=== PATIENT | female | born 1950 | race Caucasian/White ===

== ENCOUNTER 2020-11-23 20:38 | Inpatient (IN) | payer OTHER ==
[~2020-11-23] VITALS: Ht 170.2 cm; Wt 74.7 kg
--- NOTE | ~2020-11-23 | EMS ---
[address] [address] EMS Patient Care Report Name: NILESH AGUIRRE Room #: PRE MAlbina#: [id number] Admission: Attend Phys: Discharge: Date of : 48 Report #: [id number] THIS REPORT FOR: //name// Report Transmitted: 11/23/2020 21:19 EMS Care Summary [facility] MED-ACT Incident [id number] @ 11/23/2020 20:05 Incident Location [address] [place] [address] Patient NILESH AGUIRRE Female, 70 Years 1950 Patient Address [address] [place] [address] Patient History Chronic Obstructive Pulmonary Disease (COPD),Chronic Respiratory Failure, Patient Allergies No known allergies, Patient Medications Unknown, Chief Complaint no complaint by pt Disposition Transported No Lights/[place] Reason Breathing Problem Transported To [facility] Narrative Arrived to find pt lying in bed alert and oriented. Staff stated the pt is being treated for pneumonia and that her SPO2 saturation has been in the 60's [address] [address] EMS Patient Care Report Name: NILESH AGUIRRE Room #: PRE ER M.R.#: [id number] Admission: Attend Phys: Discharge: Date of : 48 Report #: [id number] for the past several days. Upon EMS arrival pt's SPO2 sat was 94 with a simple mask over her trach. Staff was unable to explain if they had treated the pt to increase the pt's oxygen sateration. Pt denied any complaint and was in no visible distress. Pt was lift to the cot and placed in the position of comfort and rested without change en route to [facility] ER. Upon arrival pt was taken to [facility] and care transferred to staffing account manager with report. Initial Vitals @20:27P: 85,R: 18,BP: 129/67,Pain: 0/10,GCS: 15,Temp: 97.6F,SpO2: 93,Revised Trauma: 12, Impression Pneumonia Procedures @PTAOxygen FlowRate: 12 Device: Trach Mask Response: UnchangedSucceeded Timeline DRILLING INSPECTOR,Oxygen FlowRate: 12 Device: Trach Mask Response: UnchangedSucceeded, 20:04,Call Received 20:04,Psap Call 20:05,Dispatched 20:06,En Route 20:12,On Scene 20:15,At Patient 20:24,Depart Scene 20:27,BP: 129/67 M,PULSE: 85,RR: 18 R,SPO2: 93 Ox,ETCO2: ,BG: ,PAIN: 0,GCS: 15, 20:35,At Destination 20:54,Call Closed Disclaimer v1.1 Copyright 2020 [employer] This EMS Care Summary contains data elements from the applicable legal record (which may be displayed differently). It is designed to provide pertinent information for the following purposes: continuity of care, clinical quality, and state data reporting. The complete legal record is available to ED staff and administrators of the receiving hospital in [facility]'s Patient Tracker. All data is provided "as is."
[2020-11-23 20:43] VITALS: BP 136/59
[2020-11-23 22:12] LABS: ABSOLUTE NEUTROPHILS 4.3 thou/uL (1.4-8.2); BASOPHILS 0.6 % (0.0-2.0); EOSINOPHILS 1.2 % (0.0-3.0); HEMATOCRIT 30.5 % (37.0-47.0); HEMOGLOBIN 9.2 gm/dL (12.0-15.0); LYMPHOCYTES 9.5 % (24.0-44.0); MCHC 30.2 g/dL (28.0-37.0); MONOCYTES 11.2 % (1.0-8.0); PLATELET COUNT 221 thou/uL (150-400); POLYS 77.5 % (36.0-66.0); RBC 3.18 mil/uL (4.20-5.00); RDW 15.2 % (10.5-14.5); WBC 5.6 thou/uL (4.0-11.0)
[2020-11-23 22:36] LABS: BUN 31 mg/dL (7-18); CALCIUM 9.8 mg/dL (8.5-10.1); CHLORIDE 98 mmol/L (98-107); CREATININE 0.6 mg/dL (0.6-1.0); GLUCOSE 123 mg/dL (74-106); POTASSIUM 4.3 mmol/L (3.5-5.1); SODIUM 144 mmol/L (136-145)
[2020-11-23 22:39] LABS: CO2 > 45 mmol/L (21-32)
[2020-11-24 00:59] LABS: BE(vivo) 21.7 mmol/L (-2 to +3); HCO3 51.1 mmol/L (22.0-26.0); sO2 95.1 % (92.0-98.0)
[2020-11-24 01:00] LABS: pH 7.318 (7.360-7.450)
[2020-11-24] MEDS ORDERED: CLONAZEPAM 0.50.5 M1 PER TUBE (02:30)
[2020-11-24] MEDS ORDERED: PROAIR HFA8.5 GM INH (02:30)
[2020-11-24] MEDS ORDERED: NORVASC10 MG PER TUBE (02:32)
[2020-11-24] MEDS ORDERED: LANSOPRAZOLE30 M2 PER TUBE (02:33)
[2020-11-24] MEDS ORDERED: ELIQUIS5 MG PER TUBE (02:34)
[2020-11-24] MEDS ORDERED: CLARITIN10 MG PER TUBE (02:34)
[2020-11-24] MEDS ORDERED: LOPERAMIDE2 MG PO (02:35)
[2020-11-24] MEDS ORDERED: MELATONIN5 MG PER TUBE (02:36)
[2020-11-24] MEDS ORDERED: ZOLOFT50 M1 PER TUBE (02:36)
[2020-11-24] MEDS ORDERED: HYDRALAZINE 5050 MG PO (02:36)
[2020-11-24] MEDS ORDERED: REMERON 30 MG T30 M1 PO (02:37)
[2020-11-24] MEDS ORDERED: VALPROIC A250 MG/51 PER TUBE (02:38)
[2020-11-24] MEDS ORDERED: ACETAMINOP160 MG/51 PER TUBE (02:39)
[2020-11-24] MEDS ORDERED: HYDROXYZINE PAM50 MG PO (02:40)
[2020-11-24] MEDS ORDERED: VALPROIC A250 MG/51 PO (02:42)
[2020-11-24 06:41] LABS: BE(vivo) 21.7 mmol/L (-2 to +3); HCO3 50.8 mmol/L (22.0-26.0); pH 7.366 (7.360-7.450); sO2 83.5 % (92.0-98.0)
[2020-11-24 06:42] LABS: PCO2 90.7 mmHg (35.0-45.0); PO2 52.8 mmHg (80.0-100.0)
--- NOTE | 2020-11-24 15:05 | NUR ---
SPOKE TO PATIENTS SON, RAVIN TuckerRadha UPDATED HIM ON PATIENTS CONDITION.
[2020-11-24 15:40] VITALS: BP 118/58
--- NOTE | 2020-11-24 17:02 | NUR ---
PT ORIENTED TO ROOM AND UNIT, BED LOW AND LOCKED, INSURANCE CLAIMS PROCESSOR RAILS UPX3, CALL LIGHT IN REACH, TELE APPLIED. PT ON BIPPAP HOWEVER DRAFTER DIRECTIONAL SURVEY DOES NOT KNOW SETTINGS OR TRACH SIZE. PEG TUBE AND COLOSTOMY IN PLACE. WILL CONTINUE TO ASSESS.
--- NOTE | 2020-11-24 17:39 | NUR ---
SHORTLY AFTER PT ADMITTED TO UNIT SHE BACAME LETHARGIC AND APNIC. PERFORMED STRERNAL CHEST RUB TO AROUSE PT WITH NO SUCCESS. FOUND TRACH CUNNULA TO BE PULLED OUT OF TRACH SITE. IMMEDIATELY REPLACE CANNULA INTO TRACH SITE AND CALLED RT. PT'S OXYGEN SATURATION IMPROVED AND PT BEGAN TAKING SPOTANEUOS BREATHS. PT MOVED TO ROOM 16 NEXT TO NURSING STATION. CONTACT PT'S SON TO INFORM AND CONTACT DR. PORRAS AND OBTAINED PRN MEDICATION FOR ANXIETY.
[2020-11-24 19:51] VITALS: BP 156/77
[2020-11-24 23:47] VITALS: BP 182/76
--- NOTE | 2020-11-25 03:40 | NUR ---
ASSUMED CARE OF PT AT 1900, PT ASSESSMENT COMPLETED NOTED. PT ALERT WITH TRACH IN PLACE ON BIPAP. PEG TUBE PATENT, PT DENIES PAIN OR SOA MORE THAN NORMAL. WILL CONTINUE TO WORK TOWARDS POC.
[2020-11-25 03:59] LABS: HEMATOCRIT 26.7 % (37.0-47.0); HEMOGLOBIN 8.7 gm/dL (12.0-15.0); MCH 30.2 pg (26.0-34.0); MCHC 32.5 g/dL (28.0-37.0); MCV 92.9 fL (80.0-100.0); RBC 2.87 mil/uL (4.20-5.00); RDW 14.9 % (10.5-14.5); WBC 3.6 thou/uL (4.0-11.0)
[2020-11-25 04:03] LABS: ANION GAP < 0 mmol/L (7-16); BUN 18 mg/dL (7-18); CALCIUM 9.4 mg/dL (8.5-10.1); CHLORIDE 102 mmol/L (98-107); CO2 43 mmol/L (21-32); CREATININE 0.6 mg/dL (0.6-1.0); GLUCOSE 119 mg/dL (74-106); MAGNESIUM 1.5 mg/dL (1.8-2.4); POTASSIUM 3.9 mmol/L (3.5-5.1); SODIUM 141 mmol/L (136-145)
[2020-11-25 04:23] VITALS: BP 188/81
[2020-11-25 08:00] VITALS: BP 148/66
--- NOTE | 2020-11-25 11:40 | NUR ---
CONTACTED BY DR. LAINE HARRELL AND INFORMED THAT HE WILL REFUSE TO CONSULT ON PATIENT. CONTACT DR. PORRAS TO INFORM ENT REFUSING CONSULT. WILL CONTINUE TO ASSESS.
[2020-11-25 12:00] VITALS: BP 150/69
--- NOTE | 2020-11-25 12:19 | NUR ---
DR. PORRAS CONTACT DR. HARRELL AND HE WILL CONSULT ON PT TOMORROW IN THE AM.
[2020-11-25 19:56] VITALS: BP 160/70
[2020-11-26 04:22] VITALS: BP 124/60
--- NOTE | 2020-11-26 05:07 | NUR ---
RECEIVED PATIENT ON BED,ALERT AND ORIENTED X4.WITH TRACHEOSTOMY CONNCETED TO BIPAP AT 40% INITIALLY THEN INCREASED BY RT ON DUTY TO 45%, PER PATIENT'S OXYGEN SATURATION.WITH PEG TUBE ON CONTINOUS FEEDING AND FLUSH SCHEDULED.WITH COLOSTOMY INTACT.NO COMPLAINTS OF PAIN.ALL NEEDS ATTENDED.WILL CONTINOUSLY MONITOR.
--- NOTE | 2020-11-26 07:35 | EKG ---
[place] [address] [facility] [place] [address] ELECTROCARDIOGRAM REPORT Name: NILESH AGUIRRE Room #: 216-P ADM IN M.R.#: [id number] Admission: 11/24/20 Attend Phys: Alexander Woo MD Discharge: Date of : 48 Report #: [id number] [facility] ED Test Date: 2020-11-23 Test Time: 21:10:01 Pat Name: NILESH AGUIRRE Department: Room: 216 Gender: F Exercise Planner: leslie day : 1950 Requested By: Ang Chaparro Order Number: [id number] MD: Danny Davis Measurements Intervals [place] Rate: 82 P: 15 OH: 127 QRS: -48 QRSD: 104 T: 4 QT: 382 QTc: 446 Interpretive Statements Sinus rhythm Abnormal R-wave progression, late transition Minimal ST elevation, lateral leads No previous ECG available for comparison Electronically Signed On 11-26-2020 7:34:53 CDT by Danny Davis [email or web address] <ELECTRONICALLY SIGNED> By: Danny Davis MD, [facility] 11/26/2034 09 09 Danny Davis MD, FACC /EPI
[2020-11-26 08:00] VITALS: BP 153/77
--- NOTE | 2020-11-26 14:00 | NUR ---
Nutrition: Consider increasing tube feeding rate to 45 mL/hr according to estimated needs.
--- NOTE | 2020-11-26 14:15 | NUR ---
Case opened to follow for dc planning. Pt admitted from [facility] where she had been rehabing with the goal of returning home with her spouse. The pt has had a complex medical course over the past few months. She is from [facility] where she lived with her spouse. She has a colostomy, peg, and trach and is currently on bipap. She was transfered to [facility] from [facility] in [facility] for continued vent weaning. She has been off the vent/bipap and getting 35% o2 per trach shield for the past 3-4 weeks. Updates and referral faxed to intake at [facility]. Blacking Machine Operator spoke with the pt's son and he requested a call from Pulmonary. Messages sent to Dr. Castro. Pt is now back on bipap and being treated for pneumonia. Therapy evals requested. Pt's son Vazquez is the primary contact and lives locally. Pt's spouse Manjeet is in [facility] and available as needed. The family's goal was rehab the pt and eventually try to get her home. Dc plan is to return to [facility] either LTAC or SNF pending her care needs and benefits. Pt's son notes she has used most of her lifetime reserve medicare days and some snf days. She does not have a secondary insurance and they have not applied for medicaid. Will follow.
[2020-11-26 16:00] VITALS: BP 146/76
--- NOTE | 2020-11-26 16:50 | NUR ---
CONTINUE PLAN OF CARE AND PT TOLERATING TUBE FEEDINGS WELL. PT DENIES PAIN AND REMAINS ON THE BIPAP. UNABLE TO FUND COLOSTOMY CART TO CHANGE COLOSTOMY. [employer]EN[employer]AL [employer] REPORTS THAT IT IS ON THIS UNIT HOWEVER NO ONE ABLE TO FIND CART. WILL CONTINUE TO ASSESS.
--- NOTE | 2020-11-26 18:45 | NUR ---
COLOSTOMY BAG CHANGED RIGHT LOWER QUADRANT.
[2020-11-26 20:15] VITALS: BP 144/76
[2020-11-27 04:20] VITALS: BP 130/60
[2020-11-27 05:25] LABS: ABSOLUTE NEUTROPHILS 2.6 thou/uL (1.4-8.2); EOSINOPHILS 0.8 % (0.0-3.0); HEMATOCRIT 26.5 % (37.0-47.0); HEMOGLOBIN 8.6 gm/dL (12.0-15.0); LYMPHOCYTES 13.7 % (24.0-44.0); MCH 30.3 pg (26.0-34.0); MCHC 32.7 g/dL (28.0-37.0); MCV 92.8 fL (80.0-100.0); MONOCYTES 5.7 % (1.0-8.0); PLATELET COUNT 254 thou/uL (150-400); POLYS 78.8 % (36.0-66.0); RBC 2.85 mil/uL (4.20-5.00); RDW 15.1 % (10.5-14.5); WBC 3.3 thou/uL (4.0-11.0)
[2020-11-27 05:37] LABS: ALBUMIN 2.4 g/dL (3.4-5.0); CALCIUM 8.9 mg/dL (8.5-10.1); CREATININE 0.6 mg/dL (0.6-1.0); POTASSIUM 3.7 mmol/L (3.5-5.1); TOTAL BILIRUBIN 0.2 mg/dL (0.2-1.0); TOTAL PROTEIN 6.1 g/dL (6.4-8.2)
[2020-11-27 08:09] VITALS: BP 142/62
[2020-11-27 11:05] VITALS: BP 146/61
--- NOTE | 2020-11-27 14:26 | NUR ---
Spoke with Joann who reports they plan to eval for LTAC as oppose to patient returning to rehab to home program. Faxed clinical update. Sp with Macie at [facility] who reports patient has used all her medicare days. She would be in a co-pay days $680 a day. Patient not accepted to LTAC side. She reports also not a candidate to their rehab to home program. Only ltc unit at [facility] is for nonweanable vent patients. 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 Plan for Dr Joaquin to repair stricture once patient off vent for 6 weeks. Macie reports patient has been off vent for that time. Patient on BIPAP at this time.
[2020-11-27 16:49] VITALS: BP 135/60
--- NOTE | 2020-11-27 18:33 | NUR ---
PT IS AXOX3-4, PLEASANT; VSS, AFEBRILE, SR ON MONITOR. PT HAS BEEN ABLE TO COMMUNICATE WITH LIP READING THROUGHOUT THE DAY. TRACH IS #6 BOVINA. ADDITIONAL TRACH AT THE BEDSIDE. PT USING BIPAP ASSIST AT 16/6, FiO2 45%. PT IS ON TUBE FEED, JEVITY 1.5 AT 40ML/HR. GOAL RATE 40ML/HR WITH 100ML FLUSH AT Q6H. SPEECH CONSULTED; PT STARTED ON HH MECHANICAL SOFT DIET. PT TOLERATING WELL. CASE MGMT CONSULTED POC IS TO CONTINUE TO ASSESS PT O2 SAT, ABX THERAPY. AWAITING FOR D/C PLANS TO LTAC FACILITY. FALL PRECAUTIONS IN PLACE; CALL LIGHT AND NEEDS WITHIN REACH. FREQUENT ROUNDING. PT CALLS APPROPRIATELY. NO CONCERNS AT THIS TIME.
[2020-11-27 20:51] VITALS: BP 138/63
[2020-11-28 04:40] VITALS: BP 142/67
[2020-11-28 08:38] VITALS: BP 117/53
--- NOTE | 2020-11-28 10:27 | NUR ---
Assumed care of pt this AM. Pt is A&O x 3-4. Denies any chest pain. On trach w/ Bipap settings 16/6 45% FiO2. SR on the monitor. Pt reports that she didn't sleep well last night & has been sleeping most of morning so far. Ileostomy in place & patent. PEG in place, no residual, continuing tube feedings at 40mL/hr Jevity 1.5. Awaiting placement d/t medicare issues. Will continue to assess pt needs throughout day.
[2020-11-28 11:45] VITALS: BP 133/67
[2020-11-28 16:00] VITALS: BP 125/62
--- NOTE | 2020-11-28 16:51 | NUR ---
CM spoke with pt's son Vazquez regarding dc plan. [facility] declining her readmission. Pt has utilized her medicare lifetime days. No secondary in place but son willing to pay 20% copay upfront. Pt still on continuous bipap per kenny liu. Goal is to rehab and eventually return home with spouse in [facility]. He has moved into a first floor condo to be on one level. Son to call [facility] and talk with their business office. [employer] notified of request to talk with son regarding [place] medicaid application. May need to consider other SNF referrals once her respiratory status improves.
[2020-11-28 20:04] VITALS: BP 127/62
[2020-11-28 22:39] VITALS: BP 123/65
[2020-11-29 04:55] VITALS: BP 123/65
--- NOTE | 2020-11-29 05:02 | NUR ---
UPON SHIFT ASSESSMENT, PT AOX4. PT DENIES PAIN. PT REPORTS SOB WITH EXERTION AND CONVERSATION, REMAINS ON 16L O2 VIA BIPAP AND TRACH. PT REPORTS ANXIETY, REQUESTING TO RESTART HOME MEDICATIONS. ONCALL PROPELLER MECHANIC NOTIFIED, RECEIEVED ORDERS FOR PRN PO 0.5MG KLONOPIN BID. PT TOLERATING PO INTAKE OF FLUIDS AND HEART HEALTHY DIET WITHOUT ISSUE. PT WITHOUT NAUSEA OR EMESIS. PT VOIDING PER EXTERNAL CATHETER. REMAINS PATENT. PT RESTING IN BED THROUGHOUT SHIFT, FREQUENT REPOSITIONING ENCOURAGED. PT NOTED TO SHIFT SLIGHTLY ON HER OWN, REPOSITIONING ASSISTANCE PROVIDED. SENSATION INTACT, CAPILLARY REFILL LESS THAN 3SEC, PERIPHERAL PULSES PALPABLE IN ALL EXTREMITIES. PT ENCOURAGED TO NOTIFY STAFF FOR ALL NEEDS, CALL LIGHT WITHIN REACH, BED ALARM ON, BED LOCKED IN LOWEST POSITION, ROOM REMAINS NEAR NURSES STATION, FREQUENT MONITORING WILL CONTINUE.
[2020-11-29 07:35] VITALS: BP 134/61
--- NOTE | 2020-11-29 09:11 | NUR ---
OSTOMY CARE; AWAKE, ALERT, COOPERATIVE, POUCH EDGES LOOSE, NEW POUCH KELLY CUT TO FIT APPLIANCE APPLIED, STOMA PINK VIABLE, BUDDED, W/ LIQ BROWN STOOL NOTED, PERISTOMAL SKIN INTACT, ADAPT RING APPLIED UNDER WAFER, SUPPLIES PLACED AT BS RECOMMENDATIONS; CHANGE POUCH Q 3-4 DAYS AND PRN, EMTPY PRN GARAGE DOOR OPENER INSTALLER AWARE
[2020-11-29 11:20] VITALS: BP 142/61
[2020-11-29] MEDS ORDERED: PREDNISONE 20 M20 MG PO (13:54)
[2020-11-29] MEDS ORDERED: ZOSYN 3.373.375 GM/1 IV (13:54)
[2020-11-29 15:42] VITALS: BP 128/69
--- NOTE | 2020-11-29 18:21 | NUR ---
PATIENT DISCHARGE WITH EMS. TRANSFERED TO EMS BIPAP AND MONITORS. TELE REMOVED BUT IV LEFT PER FACILITY REQUEST. NO CONCERNS BY PATIENT AT TIME OF TRANSFER. PATIENT STABLE AT TRANSFER.
== END 2020-11-29 19:34 | DRG 193 ==
LOC: ER 20:38 → 2N 11-24 01:30 → EROBS 11-24 01:30 → EDBD 11-24 01:30 → 2N 11-24 16:58
PROVIDERS: Nurse Practitioner Family; Pediatrics; Student in an Organized Health Care Education/Training Program; ADMIT Internal Medicine; ATTEND Internal Medicine
PROC: 5A09557 Assistance with Respiratory Ventilation, Greater than 96 Consecutive Hours, Continuous Positive Airway Pressure (ICD-10-PCS; principal; 2020-11-24)
DX: J18.9 Pneumonia, unspecified organism (principal); J96.21 Acute and chronic respiratory failure with hypoxia; J96.22 Acute and chronic respiratory failure with hypercapnia; J44.0 Chronic obstructive pulmonary disease with (acute) lower respiratory infection; Z20.822 Contact with and (suspected) exposure to COVID-19; F31.9 Bipolar disorder, unspecified; I10 Essential (primary) hypertension; K21.9 Gastro-esophageal reflux disease without esophagitis; F41.9 Anxiety disorder, unspecified; I73.9 Peripheral vascular disease, unspecified; T17.990A Other foreign object in respiratory tract, part unspecified in causing asphyxiation, initial encounter; I25.10 Atherosclerotic heart disease of native coronary artery without angina pectoris; Z93.3 Colostomy status; Z82.49 Family history of ischemic heart disease and other diseases of the circulatory system; Z93.0 Tracheostomy status; X58.XXXA Exposure to other specified factors, initial encounter; Y93.89 Activity, other specified; Y92.89 Other specified places as the place of occurrence of the external cause; Y99.8 Other external cause status; Z79.899 Other long term (current) drug therapy
CPT/HCPCS: 10081

== ENCOUNTER 2021-02-28 06:23 | Day surgery (SDC) | payer OTHER ==
[~2021-02-28] VITALS: Ht 154.9 cm; Wt 65.9 kg
--- NOTE | ~2021-02-28 | O ---
[facility] [place] [address] OPERATIVE REPORT Name: NILESH AGUIRRE Room #: DEP [facility] M.R.#: [id number] Admission: 02/28/21 Attend Phys: Germain Joaquin MD Discharge: 03/01/21 Date of : 48 Report #: [id number] THIS REPORT FOR: cc: Cely Galeas MD, Martha M. MD Ellis,Germain Chow MD ~ DATE OF SERVICE: 02/28/2021 PREOPERATIVE DIAGNOSES: Tracheal obstruction, airway instability. POSTOPERATIVE DIAGNOSES: Tracheal obstruction, airway instability. PROCEDURES: 1. Direct laryngoscopy, diagnostic. 2. Tracheotomy revision. DESCRIPTION OF PROCEDURE: The patient was brought to the operating room and placed in normal supine position. General anesthesia was obtained. The patient had an existing trach, which is utilized for ventilation. The Bivona tracheotomy tube was removed and an armored endotracheal tube was inserted through her existing tracheotomy. The oral cavity was opened. A tooth guard was placed and a Dedo laryngoscope was used to examine the hypopharynx, larynx. Vocal cords did both move symmetrically. The immediate subglottic area was completely obstructed with scar tissue. Bronchoscope was utilized to attempt to push through the scar tissue and granulation tissue present and was not viable at this time to proceed with a competent airway as the scar tissue was complete and concentric. Because of the long-term issues related to the patient's care and previous issues related to her having difficulty with general anesthesia and her debilitation at this time, it was elected not to attempt to change her subglottic airway as she has an unsure future disposition as to where she will be followed and might be moving back to [place]. The endoscopy was then terminated. The attention was turned to the patient's neck and unstable tracheotomy site. She had granulation tissue that surrounded the tracheotomy tube. Granulation tissue was debrided around the tracheostomy. Skin was removed from the inferior and lateral aspects of the tracheal wound. Subcutaneous tissue was also removed to allow for sewing the skin to the mucosa of the trachea inferiorly and laterally. Superior aspect was a well-formed tract and was left in place. The peristomal skin was secured with silk sutures from the surgical 2 o'clock position to 10 o'clock position. The armored tube was replaced with a new Shiley type shaft tracheostomy tube. The patient was awoken from anesthesia and transferred to recovery in stable condition. She will be [address] [address] OPERATIVE REPORT Name: NILESH AGUIRRE Room #: DEP [facility].#: [id number] Admission: 02/28/21 Attend Phys: Germain Joaquin MD Discharge: 03/01/21 Date of : 48 Report #: [id number] transferred back to [facility] after a 23-hour observation to make sure she has no excessive bleeding. By: [id number] Germain Joaquin MD /mae
[~2021-02-28 06:23] MED LIST: ACETAMINOP160 MG/51 PER TUBE; ANTI-DIARRHEAL2 MG PO; BUSPIRONE HCL5 MG PO; CALMOSEPTINE O3.5 GM TOP; CLARITIN10 MG PO; CLONAZEPAM 0.50.5 M1 PER TUBE; CLONAZEPAM 0.50.5 M1 PO; CLONIDINE HCL0.1 MG PO; COZAAR100 MG PO; ELIQUIS5 MG PO; HYDRALAZINE 5050 MG PO; HYDROXYZINE PAM50 MG PO; LANSOPRAZOLE30 M2 PER TUBE; LIPITOR10 MG PO; LOPERAMIDE2 MG PO; MELATONIN5 MG PO; NORVASC10 MG PO; PREDNISONE 20 M20 MG PO; PROAIR HFA8.5 GM INH; PROTONIX40 M2 PO; REMERON 30 MG T30 M1 PO; TYLENOL325 M1 PO; VALPROIC A250 MG/51 PO; ZOLOFT50 M1 PO; ZOSYN 3.373.375 GM/1 IV
[2021-02-28 07:55] VITALS: BP 127/74
[2021-02-28 15:55] VITALS: BP 114/62
[2021-02-28 19:11] VITALS: BP 99/55
--- NOTE | 2021-03-01 03:54 | NUR ---
PT IS ALERT AND ORIENTED X3 DROWSY TOO. LUNGS ARE CLEAR TO DIMINISHED. PT UNDERWENT A TRACH REVISION YESTERDAY. RT SUCTIONED PT MINIMAL THICK WHITE SPUTUM. ABDOMEN IS ROUND AND BOWEL SOUNDS ACTIVE X4. DENIES ANY PAIN ISSUES. TRACH MASK ON 15 LITERS OVER TRACH. PT HAS A PEG TUBE BUT EATS MEALS. AND A COLOSTOMY BAG TOO IN ADITION. ONGOING NURSING CARE AT THIS TIME.
[2021-03-01 04:17] VITALS: BP 108/56
[2021-03-01 08:16] VITALS: BP 111/50
[2021-03-01] MEDS ORDERED: CLONIDINE HCL0.3 M3 PO (09:21)
[2021-03-01] MEDS ORDERED: AMLODIPINE BESYLATE PO (09:24)
[2021-03-01] MEDS ORDERED: HYDRALAZINE 5050 MG PO (09:24)
[2021-03-01] MEDS ORDERED: LOSARTAN 50 MG PO (09:25)
[2021-03-01] MEDS ORDERED: VALPROIC A250 MG/52 PO (09:26)
[2021-03-01] MEDS ORDERED: SERTRALINE HCL 50 MG PO (09:26)
[2021-03-01] MEDS ORDERED: PROTONIX 20 MG20 M1 PO (09:27)
[2021-03-01] MEDS ORDERED: BUSPIRONE HCL5 MG PO (09:27)
[2021-03-01] MEDS ORDERED: LOPERAMIDE 2 MG PO (09:27)
[2021-03-01] MEDS ORDERED: MELATONIN5 M1 PO (09:28)
[2021-03-01 11:00] VITALS: BP 106/43
--- NOTE | 2021-03-01 12:32 | NUR ---
WAS NOTIFIED BY NURSING THAT DR BAKER WAS WANTING TO DC PT BACK TO [facility]. SPOKE WITH BUSTER IN ADM AT [facility] AND THEY CAN TAKE PT BACK TODAY. PT HAD A TRACH REVISION AND WAS HERE OBSERVATION PT. FAXED DC ORDERS/SUMMARY RECEIVED CONFIRMATION AND LEFT MSG WITH PT'S SON RAVIN AND KAUR THAT PT WAS BEING DISCHARGED AND TRANSPORT ARRANGED BY AMBULANCE TO RETURN TO [facility] AT 1300 TODAY. NOTIFIED NURSING UNIT OF TRANSPORT TIME. CHART COPY PER US. RN TO CALL REPORT TO [phone].
--- NOTE | 2021-03-01 13:24 | NUR ---
DISCHARGED PATIENT. CALLED REPORT TO GARIMA MCKEON AT [facility]. [facility] ARRIVED AND ASSISSTED THE CREW WITH MOVING PT FROM BED TO COT WITHOUT INCIDENT, WITHOUT INCIDENT. RESPIATORY THERAPY ASSISSTED [facility] CREW WITH TRACH SHIELD AND SETTING UP THE OXYGEN.
== END 2021-03-01 13:04 ==
LOC: OR 06:23 → TBA 06:23 → OR 09:20 → 2N 14:07 → OR 03-01 13:04
PROVIDERS: ATTEND Otolaryngology Plastic Surgery within the Head & Neck
DX: J39.8 Other specified diseases of upper respiratory tract (principal); R06.03 Acute respiratory distress; J43.9 Emphysema, unspecified; F32.9 Major depressive disorder, single episode, unspecified; F41.9 Anxiety disorder, unspecified; Z98.890 Other specified postprocedural states; Z79.899 Other long term (current) drug therapy; Z87.891 Personal history of nicotine dependence; Z20.822 Contact with and (suspected) exposure to COVID-19
CPT/HCPCS: 50101; 50386; 50398; 56526; 62110; 62900; 65075; 70005